=== PATIENT | female | born 1990 | race Caucasian/White ===

== ENCOUNTER 2018-12-20 21:09 | Emergency (ER) | payer MEDICAID, OTHER ==
[~2018-12-20] VITALS: Ht 170.2 cm; Wt 117.9 kg
--- NOTE | 2018-12-20 21:25 | ED EENT ---
History of Present Illness General Chief Complaint: Dental Problems/Pain Stated Complaint: R SIDE MOUTH PAIN Nursing Triage Note: PT REPORTS BREAKING RIGHT, BACK, BOTTOM TOOTH 5-6 DAYS AGO AND WOKE UP WITH GUM AND CHEEK SWELLING . PT DENIES ANY TOOTH PAIN ATT. Source: patient Exam Limitations: no limitations History of Present Illness Date Seen by Provider: Dec 20, 2018 Time Seen by Provider: 21:25 Allergies and Home Medications Allergies Coded Allergies: No Known Drug Allergies (Unverified , 12/20/18) Past Gtsnhmu-Akycah-Yyzeru Hx Patient Social History Alcohol Use: Denies Use Recreational Drug Use: No Smoking Status: Never a Smoker Recent Foreign Travel: No Contact w/Someone Who Travel: No Recent Infectious Disease Expo: No Recent Hopitalizations: No Seasonal Allergies Seasonal Allergies: No Past Medical History Surgeries: No Respiratory: No Cardiac: No Neurological: No Genitourinary: No Gastrointestinal: No Musculoskeletal: No Endocrine: Yes Hypothyroidsim HEENT: No Cancer: No Psychosocial: No Integumentary: No Blood Disorders: No Physical Exam Vital Signs Vital Signs - First Documented 12/20/18 21:15 Temp 97.0 Pulse 88 Resp 12 B/P (MAP) 144/83 (103) Pulse Ox 98 Height, Weight, BMI Height: 5'7.00" Weight: 260lbs. oz. 117.139006ax; BMI Method:Stated Progress/Results/Core Measures Results/Orders My Orders Orders - DEVON REYNOSO Amoxicillin/Clavulanate Tablet (Augmenti (12/21/18 07:00) Amoxicillin/Clavulanate Tablet (Augmenti (12/20/18 21:26) Amoxicillin/Clavulanate Tablet (Augmenti (12/20/18 21:30) Vital Signs/I&O 12/20/18 21:15 Temp 97.0 Pulse 88 Resp 12 B/P (MAP) 144/83 (103) Pulse Ox 98 Blood Pressure Mean: 103 Departure Impression Primary Impression: Abscessed tooth Disposition: 01 HOME, SELF-CARE Condition: Stable/Unchanged Departure-Patient Inst. Decision time for Depature: 21:42 Referrals: GENIE EDMONDSON,LOCAL PHYSICIAN (PCP) Primary Care Physician Patient Instructions: Tooth Abscess (DC) Add. Discharge Instructions: Take medications as directed. Ibuprofen and Tylenol as directed by the bottle for pain relief. Follow-up with [facility] as scheduled. Return back to the emergency room for worsening symptoms or concerns as needed. All discharge instructions reviewed with patient and/or family. Voiced understanding. Scripts Amoxicillin/Potassium Clav (Augmentin 875-125 Tablet) 1 Each Tablet 1 EACH PO BID for 10 Days, #20 TAB Prov: DEVON REYNOSO 12/20/18 DEVON REYNOSO Dec 20, 2018 21:25
[2018-12-20] MEDS ORDERED: AUGMENTIN 875 MG TAB (AMOXICILLIN/CLAVULANATE) ONE (21:26)
[2018-12-20] MEDS ORDERED: AUGMENTIN 875 MG TAB (AMOXICILLIN/CLAVULANATE) PO SCH (21:30)
[2018-12-20] MEDS ORDERED: AMOX-358 PO (21:43)
[2018-12-20 21:44] VITALS: BP 144/83
[2018-12-21] MEDS ORDERED: AUGMENTIN 875 MG TAB (AMOXICILLIN/CLAVULANATE) PO SCH (07:00)
== END 2018-12-20 21:44 | disposition home or self-care (01) ==
LOC: ER 21:11
DX: K04.7 Periapical abscess without sinus (principal); E03.9 Hypothyroidism, unspecified
CPT/HCPCS: 99283

== ENCOUNTER 2022-04-12 10:28 | Emergency (ER) | payer SELFPAY ==
[~2022-04-12] VITALS: Ht 170 cm; Wt 124.0 kg
[~2022-04-12 10:28] MED LIST: AMOX-358 PO
[2022-04-12 11:03] LABS: BASOPHILS % (AUTO) 0 % (0-10); EOSINOPHILS % (AUTO) 0 % (0-10); HEMATOCRIT 35 % (35-52); HEMOGLOBIN 11.7 g/dL (11.5-16.0); LYMPHOCYTES # (AUTO) 1.8 10^3/uL (1.0-4.0); LYMPHOCYTES % (AUTO) 32 % (12-44); MEAN CORPUSCULAR HEMOGLOBIN 29 pg (25-34); MEAN CORPUSCULAR HGB CONC 33 g/dL (32-36); MEAN CORPUSCULAR VOLUME 87 fL (80-99); MEAN PLATELET VOLUME 8.7 fL (9.0-12.2); MONOCYTES # (AUTO) 0.4 10^3/uL (0.0-1.0); MONOCYTES % (AUTO) 8 % (0-12); NEUTROPHILS # (AUTO) 3.3 10^3/uL (1.8-7.8); NEUTROPHILS % (AUTO) 60 % (42-75); PLATELET COUNT 485 10^3/uL (130-400); WHITE BLOOD COUNT 5.5 10^3/uL (4.3-11.0)
[2022-04-12 11:19] LABS: ALBUMIN 4.2 GM/DL (3.2-4.5)
[2022-04-12 11:21] LABS: CALCIUM 9.4 MG/DL (8.5-10.1)
[2022-04-12 11:22] LABS: TOTAL PROTEIN 7.5 GM/DL (6.4-8.2)
[2022-04-12 11:24] LABS: BILIRUBIN,TOTAL 0.4 MG/DL (0.1-1.0)
[2022-04-12 11:28] LABS: BILIRUBIN,URINE NEGATIVE (NEGATIVE); CLARITY,URINE CLOUDY; COLOR,URINE YELLOW; GLUCOSE, URINE (UA) NEGATIVE (NEGATIVE); KETONES,URINE NEGATIVE (NEGATIVE); LEUKOCYTE ESTERASE ,URINE 2+ (NEGATIVE); NITRITE,URINE NEGATIVE (NEGATIVE); PROTEIN,URINE TRACE (NEGATIVE)
--- NOTE | 2022-04-12 11:35 | ED Abdominal Pain ---
General Chief Complaint: Abdominal/GI Problems Stated Complaint: L SIDE STOMACH/BACK PAIN Nursing Triage Note: PT CO OF ABD PAIN L ABD AND L FLANK, RATES PAIN 6/10. PT STATES HAD DIARRHEA YESTERDAY. DENIES N/V. STATES PAIN HAS BEEN THERE LAST 2 MORNINGS. Source of Information: Patient Exam Limitations: No Limitations History of Present Illness Date Seen by Provider: Apr 12, 2022 Time Seen by Provider: 11:10 Initial Comments Patient to the ER by private conveyance from home with chief complaint of about a day and a half of abdominal discomfort, an episode of diarrhea nonbloody yesterday and left upper quadrant abdominal discomfort. She says occasionally she will get UTIs and they will feel like this although they are usually more painful. The pain does radiate from her left upper quadrant down to her back. She does not have a history of pancreatitis, diverticulitis. She is had no abdominal surgeries or scopes. She has had an Essure procedure in the past. She is not having a sore throat fevers chills or malaise. No other sick contacts or recent travel. LMP 1 week ago. Allergies and Home Medications Allergies Coded Allergies: No Known Drug Allergies (Unverified , 12/20/18) Patient Home Medication List Home Medication List Reviewed: Yes Amoxicillin/Potassium Clav (Augmentin 875-125 Tablet) 1 Each Tablet, 1 EACH PO BID Prescribed by: DEVON REYNOSO on 12/20/18 214 Nitrofurantoin Monohyd/M-Cryst (Macrobid 100 mg Capsule) 100 Mg Capsule, 1 TAB PO BID Prescribed by: DENISE SHANNON on 04/12/22 1148 Review of Systems Review of Systems Constitutional: No chills, No diaphoresis EENTM: No Blurred Vision, No Double Vision Respiratory: Denies Cough, Denies Orthopnea Cardiovascular: Denies Chest Pain, Denies Lightheadedness Gastrointestinal: See HPI, Abdominal Pain; Denies Constipated; Nausea Genitourinary: Denies Burning, Denies Discharge All Other Systems Reviewed Negative Unless Noted: Yes Past Ozsefpu-Hjwstw-Grjvvi Hx Patient Social History Tobacco Use?: No Use of E-Cig and/or Vaping dev: No Substance use?: No Alcohol Use?: No Immunizations Up To Date First/Initial COVID19 Vaccinat: 2020 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 oz. 117.105975qt; 42.00 BMI Method:Stated General Appearance: WD/WN, no apparent distress HEENT: PERRL/EOMI, TMs normal, pharynx normal Neck: non-tender, full range of motion, supple Respiratory: lungs clear, normal breath sounds, no respiratory distress, no accessory muscle use Cardiovascular: normal peripheral pulses, regular rate, rhythm Gastrointestinal: normal bowel sounds, non tender, soft, no organomegaly, other (Negative for Paul's punch. Negative for psoas sign or mesenteric signs.) Extremities: normal inspection, normal capillary refill Neurologic/Psychiatric: alert, normal mood/affect, oriented x 3 Skin: normal color, warm/dry Progress/Results/Core Measures Results/Orders Lab Results Laboratory Tests Test 04/12/22 10:55 Range/Units White Blood Count 5.5 4.3-11.0 10^3/uL Red Blood Count 4.04 3.80-5.11 10^6/uL Hemoglobin 11.7 11.5-16.0 g/dL Hematocrit 35 35-52 % Mean Corpuscular Volume 87 80-99 fL Mean Corpuscular Hemoglobin 29 25-34 pg Mean Corpuscular Hemoglobin Concent 33 32-36 g/dL Red Cell Distribution Width 12.9 10.0-14.5 % Platelet Count 485 H 130-400 10^3/uL Mean Platelet Volume 8.7 L 9.0-12.2 fL Immature Granulocyte % (Auto) 0 % Neutrophils (%) (Auto) 60 42-75 % Lymphocytes (%) (Auto) 32 12-44 % Monocytes (%) (Auto) 8 0-12 % Eosinophils (%) (Auto) 0 0-10 % Basophils (%) (Auto) 0 0-10 % Neutrophils # (Auto) 3.3 1.8-7.8 10^3/uL Lymphocytes # (Auto) 1.8 1.0-4.0 10^3/uL Monocytes # (Auto) 0.4 0.0-1.0 10^3/uL Eosinophils # (Auto) 0.0 0.0-0.3 10^3/uL Basophils # (Auto) 0.0 0.0-0.1 10^3/uL Immature Granulocyte # (Auto) 0.0 0.0-0.1 10^3/uL Urine Color YELLOW Urine Clarity CLOUDY Urine pH 6.0 5-9 Urine Specific [place] 1.025 H 1.016-1.022 Urine Protein TRACE H NEGATIVE Urine Glucose (UA) NEGATIVE NEGATIVE Urine Ketones NEGATIVE NEGATIVE Urine Nitrite NEGATIVE NEGATIVE Urine Bilirubin NEGATIVE NEGATIVE Urine Urobilinogen 0.2 < = 1.0 MG/DL Urine Leukocyte Esterase 2+ H NEGATIVE Urine RBC (Auto) 2+ H NEGATIVE Urine RBC 2-5 H /HPF Urine WBC 25-50 H /HPF Urine Squamous Epithelial Cells 10-25 H /HPF Urine Crystals NONE /LPF Urine Bacteria LARGE H /HPF Urine Casts NONE /LPF Urine Mucus NEGATIVE /LPF Urine Culture Indicated YES Sodium Level 138 135-145 MMOL/L Potassium Level 4.0 3.6-5.0 MMOL/L Chloride Level 105 98-107 MMOL/L Carbon Dioxide Level 21 21-32 MMOL/L Anion Gap 12 5-14 MMOL/L Blood Urea Nitrogen 11 7-18 MG/DL Creatinine 1.00 0.60-1.30 MG/DL Estimat Glomerular Filtration Rate 76 BUN/Creatinine Ratio 11 Glucose Level 100 70-105 MG/DL Calcium Level 9.4 8.5-10.1 MG/DL Corrected Calcium 9.2 8.5-10.1 MG/DL Total Bilirubin 0.4 0.1-1.0 MG/DL Aspartate Amino Transf (AST/SGOT) 15 5-34 U/L Alanine Aminotransferase (ALT/SGPT) 6 0-55 U/L Alkaline Phosphatase 87 40-136 U/L Total Protein 7.5 6.4-8.2 GM/DL Albumin 4.2 3.2-4.5 GM/DL Lipase 19 8-78 U/L My Orders Orders - DENISE SHANNON Ua Culture If Indicated (7/3/22 10:34) Urine Bedside (04/12/22 10:34) Cbc With Automated Diff (04/12/22 10:34) Comprehensive Metabolic Panel (04/12/22 10:34) Lipase (04/12/22 10:34) Ketorolac Injection (Toradol Injection) (04/12/22 11:45) Urine Culture (04/12/22 10:55) Medications Given in ED Current Medications Medications Dose Ordered Sig/Elisha Route Start Time Stop Time Status Last Admin Dose Admin Ketorolac Tromethamine 60 mg ONCE ONCE IM 04/12/22 11:45 04/12/22 11:46 DC 04/12/22 11:45 60 MG Vital Signs/I&O 04/12/22 04/12/22 10:39 12:01 Temp 35.7 35.7 Pulse 82 82 Resp 18 18 B/P (MAP) 137/88 (104) 137/88 Pulse Ox 99 99 Blood Pressure Mean: 104 Progress Progress Note : Time: 11:35 Progress Note No splenomegaly or sore throat so mono is less likely. Colitis versus less likely UTI/kidney stone. We will get a urinalysis to start. Toradol for her pain. Departure Impression Primary Impression: Urinary tract infection Qualified Codes: N30.01 - Acute cystitis with hematuria Disposition: HOME, SELF-CARE Condition: Stable Departure-Patient Inst. Decision time for Depature: 11:46 Referrals: SCOOTER MARTINO MD (PCP/Family) Primary Care Physician Patient Instructions: Urinary Tract Infection, Adult (DC) Add. Discharge Instructions: Macrobid 1 capsule twice a day for a week to treat urinary tract infection. Half an hour after antibiotics take a tablet of probiotics twice a day for a week to prevent worsening diarrhea from taking antibiotics. Expect to see some improvement in 2 to 3 days. Return to the ER promptly for severe worsening symptoms, especially intractable vomiting, intractable diarrhea or fever above 102.5. Keep your follow-up appointment on Wednesday with your primary care provider. All discharge instructions reviewed with patient and/or family. Voiced understanding. Scripts Nitrofurantoin Monohyd/M-Cryst (Macrobid 100 mg Capsule) 100 Mg Capsule 1 TAB PO BID for 7 Days, #14 CAP 0 Refills Prov: DENISE SHANNON 7/3/22 Copy Copies To 1: SCOOTER MARTINO MD, TITUS J Apr 12, 2022 11:34
[2022-04-12 11:36] LABS: BACTERIA,URINE LARGE /HPF; WBC,URINE 25-50 /HPF
[2022-04-12] MEDS ORDERED: KETOROLAC 60 MG/2 ML VIAL IM ONE (11:45)
[2022-04-12] MEDS ORDERED: NITR-65 PO (11:48)
[2022-04-12 12:01] VITALS: BP 137/88
== END 2022-04-12 12:01 | disposition home or self-care (01) ==
LOC: EDUNIT# 10:28 → ER 10:29
DX: N39.0 Urinary tract infection, site not specified (principal); Z28.311 Partially vaccinated for COVID-19
CPT/HCPCS: 36415; 80053; 81000; 83690; 84703; 85025; 87088

== ENCOUNTER 2023-03-24 11:49 | Emergency (ER) | payer SELFPAY ==
[~2023-03-24] VITALS: Ht 170.1 cm; Wt 131.5 kg
[~2023-03-24 11:49] MED LIST changes: +NITR-65 PO
[2023-03-24 12:08] LABS: CLARITY,URINE TURBID; COLOR,URINE ORANGE; GLUCOSE, URINE (UA) TRACE (NEGATIVE); KETONES,URINE 2+ (NEGATIVE); LEUKOCYTE ESTERASE ,URINE 2+ (NEGATIVE); NITRITE,URINE POSITIVE (NEGATIVE); PROTEIN,URINE 3+ (NEGATIVE)
[2023-03-24 12:17] LABS: BILIRUBIN,URINE 1+ (NEGATIVE)
[2023-03-24 12:18] LABS: BACTERIA,URINE LARGE /HPF; RBC,URINE 0-2 /HPF
[2023-03-24] MEDS ORDERED: ONDANSETRON 4 MG (ZOFRAN) ORAL DISSOLVE TAB PO ONE (12:30)
[2023-03-24] MEDS ORDERED: TRIM/SULFAMETH 160/800 (SEPTRA DS) TAB PO ONE (12:30)
--- NOTE | 2023-03-24 12:35 | ED GU-Female ---
General Chief Complaint: - Reproductive Stated Complaint: POSSIBLE UTI Nursing Triage Note: c/o pain with urination, (7 days) mild abdominal pain, (4 days) chills, heache, nausea/vomiting. Source: patient Exam Limitations: no limitations History of Present Illness Date Seen by Provider: Mar 24, 2023 Time Seen by Provider: 11:52 Initial Comments 32-year-old female presents to the ER with complaints of subjective fevers and chills, burning with urination, nausea, mild mid abdominal pain. States that the abdominal pain started 7 days ago, it has improved, but reports it still occurs intermittently. States that she has had similar symptoms in the past when she had UTI. Denies vaginal bleeding discharge, last bowel movement was 3 days ago and was loose. She has not been eating and drinking well due to feeling nauseous. Her last menstrual cycle was last week. Past medical history includes hypothyroidism for which she takes Synthroid. Allergies and Home Medications Allergies Coded Allergies: No Known Drug Allergies (Unverified , 12/20/18) Patient Home Medication List Home Medication List Reviewed: Yes Amoxicillin/Potassium Clav (Augmentin 875-125 Tablet) 1 Each Tablet, 1 EACH PO BID Prescribed by: DEVON REYNOSO on 12/20/18 2143 Nitrofurantoin Monohyd/M-Cryst (Macrobid 100 mg Capsule) 100 Mg Capsule, 1 TAB PO BID Prescribed by: DENISE SHANNON on 04/12/22 1148 Ondansetron (Ondansetron Odt) 4 Mg Tab.rapdis, 4 MG SL Q4H PRN for NAUSEA/VOMITING Prescribed by: Elisha Del Valle on 03/24/23 1304 Sulfamethoxazole/Trimethoprim (Bactrim Ds Tablet) 1 Each Tablet, 1 EACH PO BID Prescribed by: Elisha Del Valle on 03/24/23 1304 Review of Systems Review of Systems Constitutional: see HPI Past Rizisxb-Yaqdva-Lpjnrs Hx Patient Social History Tobacco Use?: No Use of E-Cig and/or Vaping dev: No Substance use?: No Alcohol Use?: No Pt feels they are or have been: No Immunizations Up To Date First/Initial COVID19 Vaccinat: 2020 Second COVID19 Vaccination Hermilo: 2020 Seasonal Allergies Seasonal Allergies: No Past Medical History Surgery/Hospitalization HX: hypothhyroidism Surgeries: No Respiratory: No Cardiac: No Neurological: No Genitourinary: No Gastrointestinal: No Musculoskeletal: No Endocrine: Yes Hypothyroidsim HEENT: No Cancer: No Psychosocial: No Integumentary: No Blood Disorders: No Physical Exam Vital Signs Vital Signs - First Documented 03/24/23 12:00 Temp 36.8 Pulse 94 Resp 16 B/P (MAP) 119/74 (89) Pulse Ox 99 O2 Delivery Room Air Capillary Refill : Less Than 3 Seconds Height, Weight, BMI Height: 5'7.00" Weight: 260lbs. oz. 117.375961op; 45.00 BMI Method:Stated General Appearance: WD/WN, no apparent distress Neck: supple, normal inspection Cardiovascular: regular rate, rhythm Respiratory: lungs clear, normal breath sounds, no respiratory distress, no accessory muscle use Gastrointestinal: normal bowel sounds, non tender, soft Extremities: normal range of motion, normal inspection Neurologic/Psychiatric: alert, normal mood/affect Skin: normal color, warm/dry Progress/Results/Core Measures Suspected Sepsis SIRS Temperature: Pulse: 94 Respiratory Rate: 16 Blood Pressure 119 /74 Mean: 89 Results/Orders Lab Results Laboratory Tests Test 03/24/23 12:00 Range/Units Urine Color ORANGE Urine Clarity TURBID Urine pH 5.0 5-9 Urine Specific [place] 1.020 1.016-1.022 Urine Protein 3+ H NEGATIVE Urine Glucose (UA) TRACE H NEGATIVE Urine Ketones 2+ H NEGATIVE Urine Nitrite POSITIVE H NEGATIVE Urine Bilirubin 1+ H NEGATIVE Urine Urobilinogen >=8.0 < = 1.0 MG/DL Urine Leukocyte Esterase 2+ H NEGATIVE Urine RBC (Auto) 1+ H NEGATIVE Urine RBC 0-2 /HPF Urine WBC 10-25 H /HPF Urine Squamous Epithelial Cells 2-5 /HPF Urine Crystals NONE /LPF Urine Bacteria LARGE H /HPF Urine Casts NONE /LPF Urine Mucus NEGATIVE /LPF Urine Culture Indicated YES My Orders Orders - ELISHA DEL VALLE APRN Ua Culture If Indicated (03/24/23 11:52) Urine Bedside (03/24/23 11:52) Urine Culture (03/24/23 12:00) Ondansetron Oral Dissolve Tab (Zofran (03/24/23 12:30) Sulfamethoxazole/Trimet Ds Tab (Bactrim (03/24/23 12:30) Medications Given in ED Current Medications Medications Dose Ordered Sig/Elisha Route Start Time Stop Time Status Last Admin Dose Admin Ondansetron HCl 4 mg ONCE ONCE PO 03/24/23 12:30 03/24/23 12:31 DC 03/24/23 12:37 4 MG Trimethoprim/ Sulfamethoxazole 1 ea ONCE ONCE PO 03/24/23 12:30 03/24/23 12:31 DC 03/24/23 12:43 1 EA Vital Signs/I&O 03/24/23 03/24/23 12:00 13:11 Temp 36.8 36.8 Pulse 94 94 Resp 16 16 B/P (MAP) 119/74 (89) 119/74 Pulse Ox 99 99 O2 Delivery Room Air Room Air Capillary Refill : Less Than 3 Seconds Blood Pressure Mean: 89 Progress Note : Progress Note Patient seen evaluated, sitting comfortably in recliner, no acute distress. Based on exam and symptoms, differentials includes urinary tract infection or pyelonephritis. Urinalysis and urine ordered. UA shows 3+ protein, trace glucose, 2+ ketones, positive nitrites, 1+ bilirubin, 2+ leukocytes, 1+ RBCs, 10-25 WBCs, 2-5 squamous epithelial cells, large bacteria. Urine negative. Zofran ordered for nausea, first dose of antibiotic ordered. Will have patient drink some water and eat some crackers prior to discharge. 1258 she reports that her nausea has improved. Will discharge with prescription for Zofran and Bactrim for UTI. Patient is agreeable to discharge plan. Discharge instructions and return precautions provided. Departure Impression Primary Impression: Urinary tract infection Qualified Codes: N30.01 - Acute cystitis with hematuria Disposition: HOME, SELF-CARE Condition: Stable Departure-Patient Inst. Decision time for Depature: 12:59 Referrals: SCOOTER MARTINO MD (PCP/Family) Primary Care Physician Patient Instructions: Urinary Tract Infection, Adult (DC) Add. Discharge Instructions: Complete full course of antibiotic as prescribed, do not stop taking if you begin to feel better. Take Zofran as needed for nausea. It can cause constipation. Make sure you are drinking plenty of water. Follow-up with primary care provider if symptoms do not improve in the next 3 to 5 days. Return for fever, lower back pain, any other new, concerning, or worsening symptoms. All discharge instructions reviewed with patient and/or family. Voiced understanding. Scripts Ondansetron (Ondansetron Odt) 4 Mg Tab.rapdis 4 MG SL Q4H PRN for NAUSEA/VOMITING, #15 TAB 0 Refills Prov: ELISHA DEL VALLE APRN 03/24/23 Sulfamethoxazole/Trimethoprim (Bactrim Ds Tablet) 1 Each Tablet 1 EACH PO BID for 7 Days, #14 TAB 0 Refills Prov: ELISHA DEL VALLE APRN 03/24/23 ELISHA DEL VALLE APRN Mar 24, 2023 12:35
[2023-03-24] MEDS ORDERED: SULF1TAB38 PO ×2 (13:00→13:04)
[2023-03-24] MEDS ORDERED: ONDA4TAB11 SL ×2 (13:02→13:04)
[2023-03-24 13:11] VITALS: BP 119/74
== END 2023-03-24 13:11 | disposition home or self-care (01) ==
LOC: EDUNIT# 11:49 → ER 11:50
DX: N39.0 Urinary tract infection, site not specified (principal); E03.9 Hypothyroidism, unspecified; R11.2 Nausea with vomiting, unspecified; Z79.890 Hormone replacement therapy
CPT/HCPCS: 81000; 84703; 87077; 87088; 99283